=== PATIENT | female | born 1955 | race Caucasian/White ===

== ENCOUNTER 2018-05-30 15:31 | Outpatient (CLI) | payer OTHER ==
[~2018-05-30] VITALS: Ht 160 cm; Wt 94.5 kg
--- NOTE | ~2018-05-30 | HEMODYNAMI ---
PATIENT:ALEXANDRA JIMENEZ MEDICAL RECORD: [id number] : 59 LOCATION:[facility] D.[address] [facility]# [id number] ADMISSION DATE: 05/30/18 Generatedon:05/31/201811:30 Patient name: ALEXANDRA JIMENEZ Patient #: [id number] SSN: : 1955 Date of study: 05/31/2018 Page: Of Hemodynamic Procedure Report Patient Data Patient Demographics Procedure consent was obtained First Name: ALEXANDRA Gender: Female Last Name: BARBARA : 1955 [facility] Initial: Deandra Age: 62 year(s) Patient #: [id number] Race: Unknown Additional ID: [id number] Contact details [address]: [address] [place] [address] State: [place] City: [place] Zip code: [address] Past Medical History Allergies Allergen Reaction Date Comments Reported Other allergy 05/31/2018 EGG,LATEX, DAIRY, CARDIOLYTE Admission Admission Data Admission Date: 05/30/2018 Admission Time: 15:31 Admit Source: Emergency department Room #: D.2121 Lab Results Lab Result Date: 05/31/2018 Lab Result Time: 0:00 Biochemistry Name Units Result Min Max BUN mg/dl 14 --(--*-)-- 7 18 Creatinine mg/dl 0.9 --(-*--)-- 0.6 1.3 CBC Name Units Result Min Max Hemoglobin g/dl 12.2 *-(----)-- 13.5 17.5 Procedure Procedure Types Cath Procedure Diagnostic Procedure C [facility] w/Coronaries FFR/IVUS Intra-Coronary IVUS Initial Intra-Coronary IVUS Additional PCI Procedure Coronary Stent Coronary Stent Initial Procedure Description Procedure Date Procedure Date: 05/31/2018 Procedure Start Time: 11:09 Procedure End Time: 11:28 Procedure Staff Name Function Curtis Iglesias MD Performing Physician Yarelis Stark RT Monitor Phillip Calvillo RT Scrub Sophia Schumacher RN Nurse Procedure Data Cath Procedure Fluoroscopy Diagnostic fluoroscopy Total fluoroscopy Time: 5.8 time: 5.8 min min Diagnostic fluoroscopy Total fluoroscopy dose: 677 dose: 677 mGy mGy Contrast Material Contrast Material Type Amount (ml) Isovue 300 112 Entry Location Entry Primary Successful Side Size Upsize Upsize Entry Closure Cohen ccessful Closure Location (Fr) 1 (Fr) 2 (Fr) Remarks Device Remarks Femoral Right 6 Fr Mechanical artery Short Compression Estimated blood loss: 10 ml Diagnostic catheters Device Type Used For End Catheter Placement DIAGNOSTIC [place] 110cm 5 Procedure Fr catheter ([id number]) Procedure Complications No complications Procedure Medications Medication Administration Route Dosage 0.9% NaCl I.V. 100 ml/hr Oxygen etCO2 Nasal cannula 2 l/min Lidocaine 2% added to field 20 Heparin Flush Bag added to field 2 bags (1000units/500ml NS) Radial Cocktail added to field 1 syringe (Verapomil 2mg/Nitro 400mcg/Heparin 1500units) Versed I.V. 2 mg Fentanyl I.V. 50 mcg Heparin Bolus I.V. 4000 units Versed I.V. 1 mg Plavix P.O. 75 mg Hemodynamics Rest HGB: 12.2 (g/dl) Heart Rate: 60 (bpm) Snapshots Pre Cath Intra NCS Post Cath Vital Signs Time Heart Resp SPO2 etCO2 NIBP (mmHg) Rhythm Pain Sedation Rate (ipm) (%) (mmHg) Status Level (bpm) 10:50:34 61 11 98 24.3 134/66(100) NSR 0 (11) 10(A) , No pain 10:55:00 64 17 96 44 121/72(94) NSR 0 (11) 10(A) , No pain 10:59:24 62 19 97 45 108/63(92) NSR 0 (11) 10(A) , No pain 11:03:48 72 13 97 44 115/68(94) NSR 0 (11) 10(A) , No pain 11:08:15 61 17 97 48.6 128/68(111) NSR 0 (11) 10(A) , No pain 11:12:37 67 12 96 44.1 102/60(81) NSR 0 (11) 10(A) , No pain 11:16:57 68 13 97 44.8 116/67(90) NSR 0 (11) 10(A) , No pain 11:21:28 70 19 98 47.9 128/57(89) NSR 0 (11) 10(A) , No pain 11:26:02 80 16 97 40.3 111/65(87) NSR 0 (11) 10(A) , No pain Medications Time Medication Route Dose Verified Delivered Reason Not es Effectiveness by by 10:38:55 0.9% NaCl I.V. 100 Curtis Sophia used for ml/hr Kelsie Schumacher movie editor 10:39:03 Oxygen etCO2 2 l/min Curtis Sophia used for Nasal Klesie Schumacher procedure cannula RN 10:39:08 Lidocaine 2% added 20ml Curtis Sophia used for to vial Kelsie Schumacher procedure field RN 10:39:13 Heparin Flush added 2 bags Curtis Sophia used for Bag to Kelsie Schumacher procedure (1000units/500ml field RN NS) 10:53:04 Radial Cocktail added 1 Curtis Sophia used for (Verapomil to syringe Kelsie Schumacher procedure 2mg/Nitro field RN 400mcg/Heparin 1500units) 11:07:28 Versed I.V. 2 mg Curtis Sophia for sedation Kelsie Schumacher RN 11:07:37 Fentanyl I.V. 50 mcg Curtis Sophia for sedation Kelsie Schumacher RN 11:20:25 Heparin Bolus I.V. 4000 Curtis Sophia for jen ified units Kelsie Schumacher anticoagulation with Dr. NICHOLAS Iglesias 11:22:37 Versed I.V. 1 mg Curtis Sophia for sedation Kelsie Schumacher RN 11:26:57 Plavix P.O. 75 mg Curtis Sophia for Kelsie Schumacher antiplatelet RN therapy Procedure Log Time Note 10:31:13 Informed consent obtained and on chart 10:31:17 Admit Source: Emergency department 10:31:32 Diagnostic Cath status Elective 10:31:33 Phillip Calvillo RT(R) sent for patient. Start room use. 10:31:34 Time tracking: Regular hours (M-F 7:00 - 5:00) 10:31:37 Plan of Care:Hemodynamics will remain stable., Cardiac rhythm will remain stable., Comfort level will be maintained., Respiratory function will remain adequate., Patient/ family verbilizes understanding of procedure., Procedure tolerated without complication., Recovers from procedure without complications.. 10:38:55 0.9% NaCl 100 ml/hr I.V. was administered by Sophia Schumacher RN; used for procedure; 10:39:03 Oxygen 2 l/min etCO2 Nasal cannula was administered by Sophia Schumacher RN; used for procedure; 10:39:08 Lidocaine 2% 20ml vial added to field was administered by Sophia Schumacher RN; used for procedure; 10:39:13 Heparin Flush Bag (1000units/500ml NS) 2 bags added to field was administered by Sophia Schumacher RN; used for procedure; 10:41:32 Patient received from Med II to CCL 1 Alert and oriented. Tansferred to table in Supine position. 10:41:33 Warm blankets applied, and kristyn hugger turned on for patient comfort. 10:41:33 Correct patient and procedure confirmed by team. 10:41:34 ECG and BP/O2 sat monitors applied to patient. 10:49:07 Vital chart was started 10:53:04 Radial Cocktail (Verapomil 2mg/Nitro 400mcg/Heparin 1500units) 1 syringe added to field was administered by Sophia Schumacher RN; used for procedure; 10:54:04 Baseline sample Acquired. 10:54:07 Rhythm: sinus rhythm 10:54:08 Full Disclosure recording started 10:54:09 Pre-procedure instructions explained to patient. 10:54:10 Pre-op teaching completed and patient verbalized understanding. 10:54:11 Family in patients room. 10:54:12 Patient NPO since Midnight. 10:54:29 Patient allergic to Other allergyEGG,LATEX, DAIRY, CARDIOLYTE 10:54:34 Is patient on blood thinner?Yes 10:54:36 ACC The patient was administered the following blood thiners within the last 24 hours: ACCPlavix 10:54:38 Patient diabetic? No. 10:54:40 Patient not . Patient is over age 55. 10:54:42 Previous problem with sedation/anesthesia? No ? 10:54:43 Snore? No 10:54:44 Sleep apnea? No 10:54:45 Deviated septum? No 10:54:45 Opens mouth fully? Yes 10:54:46 Sticks out tongue? Yes 10:54:48 Airway obstruction? No ? 10:54:49 Dentures? No ? 10:54:52 Modified Davin's test Ulnar < 7 seconds 10:54:55 Patient pain scale 0/10 ?. 10:55:02 IV patent on arrival in left antecubital with 0.9% NaCl at [facility]. 10:55:29 Lab Result : BUN 14 mg/dl 10:55:29 Lab Result : Hemoglobin 12.2 g/dl 10:55:29 Lab Result : Creatinine 0.9 mg/dl 10:55:33 Lab results completed and on chart. 10:55:37 Right Radial & Right Groin area was prepped with chlora-prep and draped in sterile fashion 10:55:37 Alarms reviewed by R. N. 10:55:38 Sharps counted by scrub and verified by R.N. 10:59:49 Zero performed for pressure channel P1 10:59:57 Zero performed for pressure channel P1 11:02:02 Use device set Radial Dx or PCI 11:02:09 ACIST Syringe (62939) opened to sterile field. 11:02:12 Bag Decanter (2002S) opened to sterile field. 11:02:13 ACIST Hand Control (98809) opened to sterile field. 11:02:13 ACIST Manifold (38516) opened to sterile field. 11:02:14 Tegaderm 4 x 4 (1626W) opened to sterile field. 11:02:55 Medline Cath Pack ([id number]) opened to sterile field. 11:02:56 DIAGNOSTIC WIRE .035 260cm J wire (402391) opened to sterile field. 11:02:56 MBrace Wrist Support ([id number]) opened to sterile field. 11:02:58 SHEATH 6Fr Prelude Radial ([id number]) opened to sterile field. 11:06:59 --------ALL STOP TIME OUT------ 11:07:00 Final Timeout: patient, procedure, and site verified with staff and physician. All members of the team are in agreement. 11:07:02 Right Radial & Right Groin site verified by team. 11:07:07 Physical assessment completed. ASA score P 2 - A patient with mild systemic disease as per Curtis Iglesias MD. 11:07:10 Sedation plan: IV Moderate Sedation Medication:Versed, Fentanyl 11:07:28 Versed 2 mg I.V. was administered by Sophia Schumacher RN; for sedation; 11:07:37 Fentanyl 50 mcg I.V. was administered by Sophia Schumacher RN; for sedation; 11:09:00 Procedure started. 11:09:10 Local anesthetic to right radial artery with Lidocaine 2% by Curtis Iglesias MD.INITIAL ACCESS ONLY 11:10:00 A 6 Fr Short sheath was inserted into the Right Femoral artery 11:10:33 A DIAGNOSTIC [place] 110cm 5 Fr catheter (100962) was advanced over the wire and used for Procedure. 11:11:42 LV gram done using ALEJO 11:11:45 Injector settings: Ml/sec: 7, Volume: 15, 11:12:04 EF : 55 % 11:12:23 RCA angiography performed. 11:12:46 Catheter exchanged over wire. 11:13:15 GUIDE 6FR XBLAD 3.5 catheter ([id number]) opened to sterile field. 11:13:27 6 Fr XBLAD 3.5 guide catheter was inserted over the wire 11:16:45 LCA angiography performed. 11:17:22 CHOICE PT Extra Support 182cm wire ([id number]) opened to sterile field. 11:17:23 INFLATOR Merit BasixCompak (ZD5376) opened to sterile field. 11:17:27 [place]lin Eagley[place] IVUS Catheter (53883R) opened to sterile field. 11:18:16 CHOICE ES 182 wire advanced. 11:18:17 Wire advanced across lesion. 11:20:25 Heparin Bolus 4000 units I.V. was administered by Sophia Schumacher RN; for anticoagulation; verified with Dr. Iglesias 11:20:37 IVUS catheter advanced over wire. 11:20:39 IVUS pass to Circ lesion performed. 11:20:41 IVUS catheter removed over wire. 11:22:19 Inflate balloon Inflation number: 1 A INTEGRITY RX 3.5 x 15 stent ([id number]) was prepped and advanced across the Mid CX, then inflated to 11 ILEANA for 0:10 (min:sec). 11:22:36 Stent catheter was removed intact over wire. 11:22:37 Versed 1 mg I.V. was administered by Sophia Schumacher RN; for sedation; 11:22:38 Wire removed. 11:22:43 Wire redirected to LAD. 11:23:43 IVUS catheter advanced over wire. 11:23:49 IVUS pass to LAD lesion performed. 11::35 IVUS catheter removed over wire. 11::42 Wire removed. 11::43 Guide catheter removed. 11:25:39 Procedure ended.(Physican Out) 11:25:42 TR BAND Standard ([id number]) opened to sterile field. 11:25:50 Sheath removed intact; hemostasis achieved with Mechanical Compression to the Right Femoral artery. 11:26:03 Fluoroscopy time 05.80 minutes. 11:26:08 Fluoroscopy dose: 677 mGy 11::08 Flurop Dose total: 677 11:26:13 Contrast amount:Isovue 300 112ml. 11:26:14 Sharps counted by scrub and verified by R.N. 11:26:16 TR band inflated with 10cc of air. 11:26:20 Post-procedure physical assessment completed. ASA score P 2 - A patient with mild systemic disease as per Curtis Iglesias MD. 11:26:23 Post procedure rhythm: sinus rhythm 11::25 Estimated blood loss: 10 ml 11:26:27 Post procedure instruction explained to patient.Patient verbalizes understanding. 11:26:27 Patient needs reinforcement of post procedure teaching. 11:26:55 Procedure type changed to Cath procedure, Diagnostic procedure, LHC, LHC w/Coronaries, FFR/IVUS, Intra-Coronary IVUS Initial, Intra-Coronary IVUS Additional, PCI procedure, Coronary Stent, Coronary Stent Initial 11:26:57 Plavix 75 mg P.O. was administered by Sophia Schumacher RN; for antiplatelet therapy; 11:28:20 Procedure and supply charges have been captured, reviewed, submitted and are correct. 11:28:24 Procedure Complication : No complications 11:28:26 Vital chart was stopped 11::27 See physician's report for complete and final results. 11::28 Report given to Pre/Post Procedure Room. 11:28:31 Patient transfered to Pre/Post Procedure Room with Bed. 11:28:32 Procedure ended. 11:28:32 Full Disclosure recording stopped 11::35 End room use (Document Last) Intervention Summary Intervention Notes Time ActionType Lesion and Equipment Action# Pressure Duration Attributes Used 11:22:19 Inflate Mid CX INTEGRITY RX 1 11 00:10 balloon 3.5 x 15 stent ([id number]) Device Usage Item Name Manufacture Quantity Catalog Number Hospital Part Current M inimal Lot# / Charge Number Stock Stock Serial# Code ACIST Syringe Acist 1 37546 843171 007175 590507 2 0 (97845) Medical Systems SnoopWall Bag Decanter Microtek 1 2001S 752942 39474 964907 5 (2001S) Medical Inc. ACIST Hand Acist 1 01625 271806 640541 975945 5 Control (79856) Medical Systems Inc ACIST Manifold Acist 1 28774 674881 571940 825550 5 (32423) Medical Systems Inc Tegaderm 4 x 4 3M 1 1626W 124281 573604 728194 5 (1626W) Medline Cath Medline 1 [id number] 855816 47852 535775 5 Pack ([id number]) DIAGNOSTIC WIRE St Vic 1 532469 125327 704819 148483 3 0 .035 260cm J wire (206997) MBrace Wrist Advanced 1 140-0250-00 435916 26383 887467 5 Support Vascular ([id number]) Dynamics SHEATH 6Fr Merit 1 [id number] 837973 139339 536219 5 Prelude Radial Medical ([id number]) DIAGNOSTIC Terumo 1 06-0981 728061 201423 440152 5 [place] 110cm 5 Fr catheter (626011) GUIDE 6FR XBLAD Cardinal 1 14662823 382760 594237 121318 1 0 3.5 catheter Health (18159393) CHOICE PT Extra Armstrong 1 [id number] 109652 266988 318536 5 Support 182cm Scientific wire ([id number]) INFLATOR Merit Merit 1 JL4110 448420 730409 728370 1 5 Admaxim (WL9778) [place] 1 [id number] 993510 432944 622881 8 [place] IVUS Catheter (18103T) INTEGRITY RX Medtronic 1 [id number] 789870 198304 478035 5 [id number] 3.5 x 15 stent ([id number]) TR BAND Terumo 1 [id number] 067452 579800 911704 4 0 Standard ([id number]) Signature Audit [place] Stage Time Signature Unsigned Intra-Procedure 05/31/2018 Yarelis Stark 11:30:09 AM RT(R) Signatures Monitor : Yarelis Stark Signature : RT Date : Time : [address] [address]
--- NOTE | ~2018-05-30 | OP ---
PATIENT NAME: ALEXANDRA JIMENEZ MEDICAL RECORD: [id number] :59 [facility] ADMISSION DATE:05/30/18 SURGEON: ELEAZAR GRANADOS MD DATE OF OPERATION: 05/31/2018 PROCEDURES: 1. PTCA and stent of left circumflex. 2. Intravascular ultrasound of left circumflex. 3. Intravascular ultrasound of LAD. 4. Left heart catheterization. 5. Selective coronary angiography. 6. Left ventriculogram. INDICATION: Angina and coronary artery disease. PROCEDURE IN DETAIL: After informed consent was obtained and after a detailed explanation of the risks, benefits as well as alternative therapies, the patient elected to proceed with angiogram and angioplasty. The right radial area was prepped and draped in normal sterile fashion. Right radial artery was cannulated via modified Seldinger technique with placement of 6-Macanese sheath. All catheters exchanged through this sheath. FINDINGS: Left ventriculogram was performed in standard 30-degree ALEJO view, reveals good cardiac wall motion throughout all segments. Overall ejection fraction estimated 60%. SELECTIVE CORONARY ANGIOGRAPHY: 1. Left main is with no significant angiographic disease. 2. Left anterior descending has no significant disease confirmed by intravascular ultrasound. 3. Left circumflex has greater than 70% stenosis in the mid vessel confirmed by intravascular ultrasound. 4. Right coronary has mild irregularities, but no flow-limiting stenosis. PTCA AND STENT OF THE LEFT CIRCUMFLEX: The stent used 3.5 x 15-mm Integrity. Result was 0% residual stenosis. OVERALL IMPRESSION: Successful PTCA and stent of the left circumflex going from greater than 70% initial stenosis to 0% residual. TRANSINT:[id number] Voice Confirmation ID: [id number] DOCUMENT ID: [id number] ELEAZAR GRANADOS MD at 1256 CC: [id number] DICTATION DATE: 05/31/18 1131 PATIENT REGISTRAR: 05/31/18 1139 ADM IN [place] [id number] [place] [id number]
[~2018-05-30 15:31] MED LIST: BUTALB-APAP-CA1 EACH; CARAFATE1 G/10 ML PO; CARDIZEM120 MG PO; CELEBREX200 MG; CELEBREX200 MG PO; CELEXA40 MG PO; COMPAZINE10 MG PO; COZAAR100 MG PO; EC-NAPROSYN500 MG PO; ESTRACE 0.5 MG0.5 MG PO; HYDROCHLOROTHIA25 MG PO; HYDROCODON-ACE1 EAC7 PO; K-TAB10 MEQ PO; MAXALT10 MG PO; PHENERGAN25 M1 PO; PROTONIX40 MG PO; SYNTHROID88 MCG PO; TOPAMAX200 MG PO; TOPAMAX25 MG PO; ULTRAM50 MG PO; VENTOLIN HFA18 GM INH; XANAX1 MG PO
[2018-05-30 15:53] VITALS: BP 145/89
[2018-05-30 15:54] VITALS: BP 145/89; BMI 51.8
[2018-05-30] MEDS ORDERED: NEURONTIN 300300 MG PO (16:04)
[2018-05-30] MEDS ORDERED: HCTZ25 MG PO (16:05)
[2018-05-30 16:15] LABS: BASOPHILS 0.4 % (0-2); EOSINOPHILS 4.4 % (0-7); HEMATOCRIT 36.8 % (36.0-48.0); HEMOGLOBIN 12.2 g/dL (12-16); IMMATURE GRANULOCYTES 0.3 % (0-5); LYMPHOCYTES 18.4 % (15-50); MCHC 33.2 g/dL (31.0-37.0); MCV 87.4 fL (80.0-100.0); MEAN PLATELET VOLUME 9.5 fL (7.4-10.4); MONOCYTES 6.1 % (2-11); NEUTROPHILS 70.4 % (40-80); PLATELET COUNT 266 10x3/uL (130-400); RBC 4.21 10x6/uL (4.00-5.40); RDW 14.3 % (11.5-14.5); WBC 7.1 10x3/uL (4.8-10.8)
[2018-05-30 16:38] LABS: CALC OSMOLALITY 281 mosm/kg (275-300); CALCIUM 9.1 mg/dL (8.5-10.1); CARBON DIOXIDE 25.6 mmol/L (21.0-32.0); CHLORIDE - SERUM 106 mmol/L (98-107); CREATININE - SERUM 0.9 mg/dL (0.6-1.3); GLUCOSE 97 mg/dL (74-106); POTASSIUM - SERUM 3.3 mmol/L (3.5-5.1); SODIUM 141 mmol/L (136-145); UREA NITROGEN 14 mg/dL (7-18); eGFR NON AFRICAN AMERICAN 68 mL/min (90-120)
[2018-05-30 16:39] LABS: TROPONIN-I < 0.017 ng/mL (0.000-0.060)
[2018-05-30 21:46] VITALS: BP 127/64
[2018-05-31 02:34] VITALS: BP 133/48
[2018-05-31 06:34] VITALS: BP 115/55
[2018-05-31 08:54] VITALS: BP 99/60
[2018-05-31] MEDS ORDERED: BAYER CHEWABLE81 MG PO (11:43)
[2018-05-31] MEDS ORDERED: PLAVIX75 MG PO (11:43)
[2018-05-31 21:41] VITALS: Ht 160 cm; Wt 94.5 kg
== END 2018-05-31 16:00 | disposition home or self-care (01) ==
LOC: OBSVTIME → UNDOADMOB 15:31 → D.M2 15:31 → D.OPS 15:31 → D.M2 15:31 → EDSTATUS 05-31 11:30 → D.M2 05-31 11:37 → D.CLR 05-31 11:37 → D.OPS 05-31 16:00 → D.CLR 05-31 16:00
PROVIDERS: Internal Medicine Interventional Cardiology
DX: I25.119 Atherosclerotic heart disease of native coronary artery with unspecified angina pectoris (principal); Z95.5 Presence of coronary angioplasty implant and graft; I10 Essential (primary) hypertension

== ENCOUNTER 2018-05-31 21:33 | Emergency (ER) | payer OTHER ==
[~2018-05-31] VITALS: Ht 160 cm; Wt 99.1 kg
--- NOTE | ~2018-05-31 | DS ---
PATIENT:ALEXANDRA BARNETT :59 MEDICAL RECORD: [id number] DISCHARGE SUMMARY ADMISSION DATE: 05/31/18 DISCHARGE DATE: 06/01/18 DATE OF SERVICE: 05/31/2018. DIAGNOSES: 1. Angina. 2. Coronary artery disease. 3. Percutaneous transluminal coronary angioplasty stent of left circumflex this admission. HOSPITAL COURSE: Mrs. Barnett presents with anginal symptomatology, found to have significant disease of the circumflex, underwent successful PTCA stent of the circumflex, discharged home with the addition of aspirin and Plavix to her medical regimen. Will follow up with [facility] in 1 month. TRANSINT:[id number] Voice Confirmation ID: [id number] DOCUMENT ID: [id number] ELEAZAR GRANADOS MD at 1138 CC: [id number] DICTATION DATE: 05/31/18 1129 DUST COLLECTOR: 05/31/18 2228 DEP ER 06/01/[address] [address]
--- NOTE | ~2018-05-31 | HP ---
PATIENT: ALEXANDRA BARNETT MEDICAL RECORD: [id number] ACCOUNT: [id number] LOCATION:[facility] : 59 ADMISSION DATE: 05/31/18 PCP: JASMINA SEN MD HISTORY AND PHYSICAL EXAMINATION DIAGNOSIS: Chest pain compatible with angina. HISTORY OF PRESENT ILLNESS: Mrs. Barnett has had increasing episodes of chest pain, chest discomfort compatible with angina worsened over the past week. PHYSICAL EXAMINATION: GENERAL APPEARANCE: Well-nourished, well-developed, appears stated age. Level of distress, comfortable. PSYCHIATRIC: Mental status, alert, normal affect. Orientation, oriented to time, place and person. EYES: Lids and conjunctiva, noninjected. No discharge, no pallor. ENT: Lips, teeth, gums, normal dentition. Oropharynx, no cyanosis, no pallor. NECK: Carotid arteries, bilateral normal upstroke, no bruits, no thrills. JUGULAR VEINS: No jugular venous pressure or distention. CERVICAL LYMPH NODES: Nontender, nonenlarged. THYROID: Not enlarged. Nontender. No nodules. LUNGS: Respiratory effort, unlabored. CHEST: Normal curvature. No thoracic deformity. No chest wall tenderness. Percussion, resonant. Auscultation, clear. No wheezes, no rales, no rhonchi. CARDIOVASCULAR: Precordial exam, nondisplaced. No heaves or pericardial thrills. Rate and rhythm, regular. Heart sounds, normal S1, normal S2. No S3, no gallop, no rub. Systolic murmur, not heard. Diastolic murmur, not heard. EXTREMITIES: No cyanosis, no edema. Peripheral pulses, full and equal in all extremities, except as noted. No bruits appreciated. ABDOMEN: Soft, nondistended. Normal aorta. No bruit. Nontender. No masses. Liver, nontender, no hepatomegaly. Spleen, nontender, no splenomegaly. MUSCULOSKELETAL: No joint tenderness. No joint swelling. No erythema. NEUROLOGICAL: Normal gait, normal strength, normal tone. SKIN: Warm and dry. REVIEW OF SYSTEMS: The patient reports easy bruising but reports no swollen glands. The patient reports no fever, no night sweats, no significant weight gain, no significant weight loss. No significant exercise tolerance. The patient reports no dry eyes, no irritation, no vision change. Patient reports no difficulty hearing and no ear pain. Patient reports no frequent nose bleeds or nose and sinus problems. Patient reports on arm pain on exertion. No shortness of breath while lying down. No history of heart murmur. Patient reports no cough, no wheezing or coughing up blood. Patient reports no abdominal pain, no vomiting. Normal appetite. No diarrhea and not vomiting blood. No nausea and no constipation. Patient reports no incontinence. No difficulty urinating. No hematuria. No increased frequency. Patient reports no muscle aches. No weakness, no arthralgias, no back pain. No swelling of the extremities. Patient reports no abnormal mole, no jaundice, no rashes. Reports no loss of consciousness. No weakness and no numbness. No seizures, dizziness, or headaches. The patient reports no depression, no sleep disturbance, feeling safe in a relationship and no alcohol abuse. Patient reports on fatigue. Reports no runny nose or sinus pressure. No itching, no hives, and no frequent sneezing. OVERALL IMPRESSION: Anginal symptomatology. We will proceed with coronary HISTORY AND PHYSICAL [id number] ALEXANDRA BARNETT angiography. Further care depends upon the findings of the angiography. TRANSINT:[id number] Voice Confirmation ID: [id number] DOCUMENT ID: [id number] ELEAZAR GRANADOS MD CC: [id number] DICTATION DATE: 06/21/18922 PLUSH DRESSER: 06/21/18 1218 DEP ER 06/01/18 [place] [id number] [place] [address]
[~2018-05-31 21:33] MED LIST changes: +BAYER CHEWABLE81 MG PO; +HCTZ25 MG PO; +NEURONTIN 300300 MG PO; +PLAVIX75 MG PO
[2018-05-31 21:41] VITALS: Ht 160 cm; Wt 99.1 kg
[2018-05-31 23:30] LABS: HEMATOCRIT 34.6 % (36.0-48.0); HEMOGLOBIN 11.9 g/dL (12-16); LYMPHOCYTES 19.6 % (15-50); MCH 29.7 pg (26.0-34.0); MCHC 34.4 g/dL (31.0-37.0); MCV 86.3 fL (80.0-100.0); MEAN PLATELET VOLUME 8.9 fL (7.4-10.4); NEUTROPHILS 69.6 % (40-80); PLATELET COUNT 252 10x3/uL (130-400); RBC 4.01 10x6/uL (4.00-5.40); RDW 13.6 % (11.5-14.5); WBC 5.5 10x3/uL (4.8-10.8)
[2018-05-31 23:52] LABS: ALBUMIN 3.3 g/dL (3.4-5.0); ANION GAP 12.4 mmol/L (8-16); BILIRUBIN - TOTAL 0.23 mg/dL (0.2-1.3); CALCIUM 8.4 mg/dL (8.5-10.1); POTASSIUM - SERUM 3.4 mmol/L (3.5-5.1); PROTEIN - SERUM 6.9 g/dL (6.4-8.2); TROPONIN-I 0.033 ng/mL (0.000-0.060)
[2018-06-01 01:44] VITALS: BP 110/64
== END 2018-06-01 01:44 | disposition home or self-care (01) ==
LOC: D.ER 21:33
PROVIDERS: Family Medicine
DX: R07.9 Chest pain, unspecified (principal); I25.10 Atherosclerotic heart disease of native coronary artery without angina pectoris; G43.409 Hemiplegic migraine, not intractable, without status migrainosus; R06.02 Shortness of breath; I10 Essential (primary) hypertension

== ENCOUNTER → 2018-08-25 08:12 | Outpatient (CLI) | payer OTHER ==
[2018-05-31 21:41] VITALS: BMI 38.7
== END | disposition home or self-care (01) ==
LOC: D.RAD 08:12
DX: R13.10 Dysphagia, unspecified (principal)

== ENCOUNTER → 2018-09-19 13:14 | Outpatient (CLI) | payer OTHER ==
[2018-05-31 21:41] VITALS: BMI 38.7
== END | disposition home or self-care (01) ==
LOC: D.RAD 13:00
PROVIDERS: ATTEND Family Medicine
DX: R13.10 Dysphagia, unspecified (principal)

== ENCOUNTER 2019-02-21 07:50 | Outpatient (CLI) | payer OTHER ==
[~2019-02-21] VITALS: Ht 160 cm; Wt 90.5 kg
--- NOTE | ~2019-02-21 | OP ---
PATIENT NAME: ALEXANDRA JIMENEZ MEDICAL RECORD: [id number] :59 LOCATION:D.CAT ADMISSION DATE: SURGEON: ELEAZAR GRANADOS MD DATE OF OPERATION: 02/21/2019 PROCEDURES: 1. Left heart catheterization. 2. Selective coronary angiography. 3. Left ventriculogram. INDICATION: Angina and coronary artery disease. PROCEDURE IN DETAIL: After informed consent was obtained and after a detailed description of risks, benefits as well as alternative therapies, the patient elected to proceed with angiogram and heart catheterization. The right femoral area was prepped and draped in normal sterile fashion. Right femoral artery was cannulated via modified Seldinger technique with placement of 5-Mongolian sheath. All catheters exchanged through this sheath. FINDINGS: Left ventriculogram was performed in standard 30-degree ALEJO view, reveals good cardiac wall motion, ejection fraction estimated 60%. SELECTIVE CORONARY ANGIOGRAPHY: 1. Left main is with no significant angiographic disease. 2. Left anterior descending has previously placed stent that is widely patent. There is no disease elsewise throughout the LAD or its branches. 3. Left circumflex has moderate irregularities, but no flow-limiting stenosis. 4. Right coronary has moderate irregularities, but no flow-limiting stenosis. OVERALL IMPRESSION: Wide patency of the previously placed stent, no disease elsewise. Chest pain is noncardiac in etiology. TRANSINT:[id number] Voice Confirmation ID: [id number] DOCUMENT ID: [id number] ELEAZAR GRANADOS MD CC: [id number] DICTATION DATE: 02/21/19 1043 BOTTOM STEEP TENDER: 02/21/19 1055 REG [facility] [address] [place] [address]
--- NOTE | ~2019-02-21 | HEMODYNAMI ---
PATIENT:ALEXANDRA JIMENEZ MEDICAL RECORD: [id number] : 59 LOCATION:DMICHELLE ADMISSION DATE: 02/21/19 Generatedon:02/21/201910:42 Patient name: ALEXANDRA JIMENEZ Patient #: [id number] SSN: [id number] : 1955 Date of study: 02/21/2019 Page: Of Hemodynamic Procedure Report Patient Data Patient Demographics Procedure consent was obtained First Name: ALEXANDRA Gender: Female Last Name: BARBARA : 1955 [facility] Initial: J Age: 63 year(s) Patient #: [id number] Race: SSN: [id number] Additional ID: [id number] Contact details Address: [address] [place] [address] State: [place] City: [place] Zip code: [address] Past Medical History Allergies Allergen Reaction Date Comments Reported Other allergy 05/31/2018 EGG,LATEX, DAIRY, CARDIOLYTE Other allergy 02/21/2019 LATEX, CARDIOLYTE Admission Admission Data Admission Date: 02/21/2019 Admission Time: 7:50 Arrival Date: 02/21/2019 Arrival Time: 0:00 Admit Source: Other Insurance Payor: Medicaid, Private health insurance [facility] #: [id number] Height (in.): 62.99 BSA: 1.93 (m2) Height (cm.): 160 BMI: 35.16 (kg/m2) Weight (lbs.): 198.42 Weight (kg.): 90 Lab Results Lab Result Date: 02/21/2019 Lab Result Time: 8:30 Biochemistry Name Units Result Min Max BUN mg/dl 12 --(-*--)-- 7 18 Creatinine mg/dl 1.1 --(--*-)-- 0.6 1.3 CBC Name Units Result Min Max Hematocrit % 36.8 *-(----)-- 42 54 Hemoglobin g/dl 12.4 *-(----)-- 13.5 17.5 Procedure Procedure Types Cath Procedure Diagnostic Procedure [facility] w/Coronaries Procedure Description Procedure Date Procedure Date: 02/21/2019 Procedure Start Time: 10:31 Procedure End Time: 10:41 Procedure Staff Name Function Curtis Iglesias MD Performing Physician Phillip Calvillo RT Scrub Rayo Merrill RN Nurse Mitchel Herrera RT Monitor Procedure Data Cath Procedure Fluoroscopy Diagnostic fluoroscopy Total fluoroscopy Time: 1 time: 1 min min Diagnostic fluoroscopy Total fluoroscopy dose: 346 dose: 346 mGy mGy Contrast Material Contrast Material Type Amount (ml) Isovue 300 46 Entry Location Entry Primary Successful Side Size Upsize Upsize Entry Closure Succes sful Closure Location (Fr) 1 (Fr) 2 (Fr) Remarks Device Remarks Femoral Right 5 Fr Exoseal artery Estimated blood loss: 10 ml Diagnostic catheters Device Type Used For End Catheter Placement MULTIPACK Pigtail 5 Fr Ventriculography catheter MULTIPACK JL 4.0 5Fr Procedure catheter MULTIPACK 3DRC 5Fr Procedure catheter Procedure Medications Medication Administration Route Dosage 0.9% NaCl I.V. 100 ml/hr Oxygen etCO2 Nasal cannula 2 l/min Heparin Flush Bag added to field 2 bags (1000units/500ml NS) Lidocaine 2% added to field 20 Versed I.V. 1 mg Fentanyl I.V. 50 mcg Versed I.V. 1 mg Fentanyl I.V. 50 mcg Hemodynamics Rest BSA: 1.93 (m2) HGB: 12.4 (g/dl) O2 Consumption: Estimated: 164.46 (ml/min) O2 Co nsumption indexed: Estimated:85.21 (ml/min/m) Heart Rate: 45 (bpm) Pressure Samples Time Site Value (mmHg) Purpose Heart Use Rate(bpm) 10:33 AO 124/70(56) Snapshot 53 Snapshots Pre Cath Intra NCS Post Cath Vital Signs Time Heart Resp SPO2 etCO2 NIBP Rhythm Pain Sedation Rate (ipm) (%) (mmHg) (mmHg) Status Level (bpm) 10:25:26 54 13 92 44.1 97/57(74) NSR 6 (11) 10(A) , Intense 10:29:36 55 15 92 46.3 98/61(75) NSR 6 (11) 10(A) , Intense 10:33:50 56 13 93 11.9 102/52(69) NSR 6 (11) 10(A) , Intense 10:38:01 61 22 95 11.2 96/60(86) NSR 0 (11) 9(A) , No pain Medications Time Medication Route Dose Verified Delivered Reason Notes Eff ectiveness by by 10:24:28 0.9% NaCl I.V. 100 Rayo Rayo Per ml/hr Desirae Merrill physician RN RN 10:24:47 Oxygen etCO2 2 Rayo Rayo for low 02 Nasal l/min Lorigan Lorigan sats cannula RN RN 10:25:10 Heparin Flush added 2 Rayo Rayo used for Bag to bags Lorigan Lorigan procedure (1000units/500ml field RN RN NS) 10:25:19 Lidocaine 2% added 20ml Rayo Rayo for local to vial Lorigan Lorigan anesthetic field RN RN 10:28:36 Versed I.V. 1 mg Rayo Rayo for Lorigan Lorigan sedation RN RN 10:28:45 Fentanyl I.V. 50 Rayo Rayo for mcg Lorigan Lorigan sedation RN RN 10:32:25 Versed I.V. 1 mg Rayo Rayo for Lorigan Lorigan sedation RN RN 10:32:31 Fentanyl I.V. 50 Rayo Rayo for mcg Lorigan Lorigan sedation RN prosthetics lab technician Log Time Note 10:00:57 Rayo Merrill RN sent for patient. Start room use. 10:11:11 ACC Patient presents with Unstable Angina CCS Anginal Class 4--Inability to carry out any physical activity w/o angina. Angina may occur at rest. 10:11:15 ACCPatient has been prescribed/administered the following anti-anginal medication within the last 2 weeks: Beta Mireya, Long-Acting Nitrates, ARB 10:11:29 Informed consent obtained and on chart 10:13:04 Patient Height : 62.99 inches 10:13:06 Patient Weight : 198.42 lbs 10:13:12 Insurance Payor : Private health insurance, Medicaid 10:13:31 Arrival Date: 02/21/2019 12:00:00 AM 10:13:32 Admit Source: Other 10:14:00 Lab Result : BUN 12 mg/dl 10:14:00 Lab Result : Hemoglobin 12.4 g/dl 10:14:00 Lab Result : Creatinine 1.1 mg/dl 10:14:00 Lab Result : Hematocrit 36.8 % 10:14:22 H&P Date Dictated: 02/16/2019 Within 30 days and on chart., H&P Addendum completed by physician on day of procedure. (MUST COMPLETE FOR ALL OUTPATIENTS). 10:14:25 Lab results completed and on chart. 10:14:55 Procedure Status Elective Heart Cath (OP). 10:15:03 Time tracking: Regular hours (M-F 7:00 - 5:00) 10:15:06 Plan of Care:Hemodynamics will remain stable., Cardiac rhythm will remain stable., Comfort level will be maintained., Respiratory function will remain adequate., Patient/ family verbilizes understanding of procedure., Procedure tolerated without complication., Recovers from procedure without complications.. 10:15:10 Patient received from Pre/Post Procedure Room to CCL 1 Alert and oriented. Tansferred to table in Supine position. 10:15:25 Warm blankets applied, and kristyn hugger turned on for patient comfort. 10:15:25 Correct patient and procedure confirmed by team. 10:15:25 ECG and BP/O2 sat monitors applied to patient. 10:15:26 Pre-procedure instructions explained to patient. 10:15:27 Pre-op teaching completed and patient verbalized understanding. 10:15:28 Family in waiting room. 10:15:30 Patient NPO since Midnight. 10:15:45 Patient allergic to Other allergyLATEX, CARDIOLYTE 10:24:12 Vital chart was started 10:24:13 Baseline sample Acquired. 10:24:19 Rhythm: sinus bradycardia 10:24:21 Full Disclosure recording started 10:24:27 Is the patient allergic to Iodine/contrast media? No. 10:24:28 0.9% NaCl 100 ml/hr I.V. was administered by Rayo Merrill RN; Per physician; 10:24:37 Is patient on blood thinner?No 10:24:46 Patient diabetic? No. 10:24:47 Oxygen 2 l/min etCO2 Nasal cannula was administered by Rayo Merrill RN; for low 02 sats; 10:24:48 ----Pre-sedation anethsthesia assessment.---- 10:24:53 Previous problem with sedation/anesthesia? No ? 10:24:54 Snore? Yes 10:24:56 Sleep apnea? No 10:24:58 Deviated septum? No 10:24:59 Opens mouth fully? Yes 10:25:00 Sticks out tongue? Yes 10:25:03 Airway obstruction? No ? 10:25:07 Dentures? No ? 10:25:10 Heparin Flush Bag (1000units/500ml NS) 2 bags added to field was administered by Rayo Merrill RN; used for procedure; 10:25:12 Pre procedure: right dorsailis pedis pulse 1+ Palpable, but thready & weak; easily obliterated 10:25:16 Patient pain scale 6/10 ?. 10:25:19 Lidocaine 2% 20ml vial added to field was administered by Rayo Merrill RN; for local anesthetic; 10:25:42 IV patent on arrival in left antecubital with 0.9% NaCl at [facility]. 10:25:51 Right groin area was prepped with chlora-prep and draped in sterile fashion 10:25:53 Alarms reviewed by R. N. 10:25:53 Sharps counted by scrub and verified by R.N. 10:26:51 3a) 45-59 Moderately reduced kidney function. 10:26:56 Zero performed for pressure channel P1 10:27:37 Maximum allowable contrast dose (3.7 X eGFR X 0.75)147 ml. 10:27:47 Physician arrived 10:27:47 --------ALL STOP TIME OUT------ 10:27:48 Final Timeout: patient, procedure, and site verified with staff and physician. All members of the team are in agreement. 10:27:50 Right groin site verified by team. 10:27:55 Fire Safety Assessment: A--An alcohol-based skin anteseptic being used preoperatively., C--Open oxygen or nitrous oxide is being used., D--An ESU, laser, or fiber-optic light is being used. 10:27:59 Physical assessment completed. ASA score P 2 - A patient with mild systemic disease as per Curtis Iglesias MD. 10:28:03 Sedation plan: IV Moderate Sedation Medication:Versed, Fentanyl 10:28:36 Versed 1 mg I.V. was administered by Rayo Merrill RN; for sedation; 10::45 Fentanyl 50 mcg I.V. was administered by Rayo Merrill RN; for sedation; 10:30:00 Use device set Femoral Dx 10:30:01 ACIST Syringe (27430) opened to sterile field. 10:30:02 Bag Decanter (2002S) opened to sterile field. 10:30:02 Medline Cath Pack ([id number]) opened to sterile field. 10:30:04 ACIST Hand Control (22537) opened to sterile field. 10:30:04 ACIST Manifold (23448) opened to sterile field. 10:30:05 DIAGNOSTIC Multipack 5Fr catheter set ([id number]) opened to sterile field. 10:30:07 Tegaderm 4 x 4 (1626W) opened to sterile field. 10:30:08 SHEATH 5FR [place] (OLQ566) opened to sterile field. 10:30:09 EMERALD Guide Wire (730-292) opened to sterile field. 10:31:38 Procedure started. 10:31:42 Local anesthetic to right femoral artery with Lidocaine 2% by Curtis Iglesias MD.INITIAL ACCESS ONLY 10:32:00 A 5 Fr sheath was inserted into the Right Femoral artery 10:32:13 A MULTIPACK Pigtail 5 Fr catheter was advanced over the wire and used for Ventriculography. 10:32:25 Versed 1 mg I.V. was administered by Rayo Merrill RN; for sedation; 10:32:31 Fentanyl 50 mcg I.V. was administered by Rayo Merrill RN; for sedation; 10:33:15 LV hemodynamics recorded. 10:33:17 LV gram done using ALEJO 10:33:28 EF : 60 % 10:33:43 Catheter removed. 10:33:50 A MULTIPACK JL 4.0 5Fr catheter was advanced over the wire and used for Procedure. 10:34:03 LCA angiography performed. 10:34:38 Catheter removed. 10:34:59 A MULTIPACK 3DRC 5Fr catheter was advanced over the wire and used for Procedure. 10:35:25 ACCDominant side:Left 10:36:09 Catheter removed. 10:36:16 EXOSEAL 5Fr (EX500) opened to sterile field. 10:36:28 Sheath removed intact; hemostasis achieved with Exoseal to the Right Femoral artery. 10:36:39 Procedure ended.(Physican Out) 10:37:26 Fluoroscopy time 01.00 minutes. 10:37:34 Fluoroscopy dose: 346 mGy 10:37:34 Flurop Dose total: 346 10:38:10 Dose Area Product 23803 mGy/cm. 10:38:15 Contrast amount:Isovue 300 46ml. 10:38:18 Maximum allowable dose exceeded? No. 10:38:19 Sharps counted by scrub and verified by R.N. 10:38:36 Post Procedure Pulses reassessed and unchanged 10:38:39 Post-procedure physical assessment completed. ASA score P 2 - A patient with mild systemic disease as per Curtis Iglesias MD. 10:38:44 Post procedure rhythm: sinus rhythm 10:38:48 Estimated blood loss: 10 ml 10:38:52 Patient needs reinforcement of post procedure teaching. 10:38:53 Procedure and supply charges have been captured, reviewed, submitted and are correct. 10:41:12 Insertion/operative site no bleeding no hematoma. 10:41:15 Post-op/insertion site Right Femoral artery dressed using a 4 x 4 and Tegaderm. 10:41:19 Post right femoral artery:stable 10:41:21 Vital chart was stopped 10:41:22 See physician's report for complete and final results. 10:41:26 Report given to Pre/Post Procedure Room. 10:41:30 Patient transfered to Pre/Post Procedure Room with Stretcher. 10:41:33 Procedure ended. 10:41:33 Full Disclosure recording stopped 10:41:57 End room use (Document Last) Device Usage Item Name Manufacture Quantity Catalog Hospital Part Current Minimal L ot# / Number Charge Number Stock Stock Serial# Code ACIST Acist 1 40443 126091 187332 433857 20 Syringe Medical (59003) Systems Inc Bag Microtek 1 748328 91605 236643 5 Decanter Medical Inc. () Medline Medline 1 [id number] 646702 62552 205801 5 Cath Pack ([id number]) ACIST Hand Acist 1 75005 831418 505984 314050 5 Control Medical (61980) Systems Inc ACIST Acist 1 18234 719828 508182 181172 5 Manifold Medical (06193) Systems Inc DIAGNOSTIC Cardinal 1 [id number] 667477 08492 106442 30 [employer] Health 5Fr catheter set (PS8762) Tegaderm 4 3M 1 1626W 710188 739170 659208 5 x 4 (1626W) SHEATH 5FR Terumo 1 GRG720 082102 545040 694039 5 [place] (WOZ654) EMERALD Cardinal 1 150-908 963693 539188 711335 5 Guide Wire Health (817-177) MULTIPACK Cardinal 1 593429 5 Pigtail 5 Health Fr catheter MULTIPACK Cardinal 1 861697 5 JL 4.0 5Fr Health catheter MULTIPACK Cardinal 1 326056 5 3DRC 5Fr Health catheter EXOSEAL 5Fr Cardinal 1 EX500 079661 950735 134758 10 (EX500) Health Signature Audit Cunningham Stage Time Signature Unsigned Intra-Procedure 02/21/2019 Mitchel Herrera 10:42:33 AM RT(R) (CV) Signatures Performing Physician : Signature : Curtis Iglesias MD Date : Time : Nurse : Rayo Merrill Signature : RN Date : Time : Monitor : Mitchel Herrera RT Signature : Date : Time : [place] [id number] [facility] [address]
[2019-02-21] MEDS ORDERED: K-TAB10 MEQ PO (08:21)
[2019-02-21 08:31] VITALS: BP 110/66; Ht 160 cm; Wt 90.5 kg
[2019-02-21 08:43] LABS: ANION GAP 11.6 mmol/L (8-16); CALCIUM 8.8 mg/dL (8.5-10.1); CARBON DIOXIDE 26.6 mmol/L (21.0-32.0); CREATININE - SERUM 1.1 mg/dL (0.6-1.3); POTASSIUM - SERUM 3.2 mmol/L (3.5-5.1)
[2019-02-21 08:49] LABS: BASOPHILS 0.3 % (0-2); EOSINOPHILS 5.1 % (0-7); HEMATOCRIT 36.8 % (36.0-48.0); HEMOGLOBIN 12.4 g/dL (12-16); IMMATURE GRANULOCYTES 0.3 % (0-5); LYMPHOCYTES 16.8 % (15-50); MCH 28.8 pg (26.0-34.0); MCHC 33.7 g/dL (31.0-37.0); MCV 85.4 fL (80.0-100.0); MEAN PLATELET VOLUME 9.2 fL (7.4-10.4); MONOCYTES 7.7 % (2-11); NEUTROPHILS 69.8 % (40-80); PLATELET COUNT 262 10x3/uL (130-400); RBC 4.31 10x6/uL (4.00-5.40); RDW 14.2 % (11.5-14.5); WBC 7.4 10x3/uL (4.8-10.8)
[2019-02-21 08:53] LABS: CHOL - HDL RATIO 6.4 ratio (2.3-4.1)
--- NOTE | 2019-02-21 10:57 | NUR ---
RECEIVED PT TO ROOM, PT SLEEPING AND AWAKENS EASILY. DENIES ANY C/O. DRESING CDI TO RIGHT GROIN, AREA IS SOFT AND NONTENDER. PEDAL PULSES PALPABLE. NSR, RATE 61. BP IS 93/53. IV PATENT AND INFUSING PER ORDERS. HOB IS FLAT. PT INSTRUCTED TO KEEP HEAD FLAT TO PILLOW AND RIGHT LEG STRAIGHT AND VERBALIZES UNDERSTANDING. AT BEDSIDE. BED LOCKED AND LOW, SIDE RAILS UP X2. CALL LIGHT IN REACH.
--- NOTE | 2019-02-21 11:07 | NUR ---
HOG IS FLAT, DRESSING CDI, PEDAL PULSES PALPABLE. NSR, RESP WITH EASE.
--- NOTE | 2019-02-21 11:53 | NUR ---
DRESSING CDI, PEDAL PULSES PALPABLE. VSS,. CALL LIGHT IN REACH.
--- NOTE | 2019-02-21 12:11 | NUR ---
PT HAS VOIDED QS USING BEDPAN, DRESSING CDI TO RIGHT GROIN, AREA IS SOFT WITH NO HEMATOMA NOTED. PT STATES SHE HAS A HEADACHE, STATES WAS "TRIGGERED WHEN THE LIGHT WAS TURNED ON' WHILE PT T=PLACED ON BEDPAN. REQUESTS TYLENOL AND ORDER RECIEVED FOR THIS. SANDWICH AND PO FLUIDS SERVED, HOB ELEVATED 30 DEGREES, LIGHTS IN ROOM ARE OFF. ALERT AND AT BEDSIDE. SINUS MAINE AT 56. PT IS 112/64
--- NOTE | 2019-02-21 12:38 | NUR ---
1220 PT HAS TOLERATED SANDWICH WITH NO C/O NAUSEA. DRESSING REMAINS CDI TO RIGHT GROIN, AREA IS SOFT WITH NO HEMATOMA NOTED. PEDAL PULSES PALPABLE. HOB IS FULLY ELEVATED. 1238 DRESSING REMAINS CDI TO RIGHT GROIN, PEDAL PULSES PALPABLE. IV DC'D WITH CATH INTACT.
--- NOTE | 2019-02-21 13:25 | NUR ---
1300 ASSISTED PT WITH DRESSING FOR DC TO HOME. PT IS ALERT, DENIES ANY C/O CHEST PAIN OR NAUSEA. STATES HEADACHE IS 'MUCH BETTER' AFTER TYLENOL. DRESSING REMAINS CDI TO RIGHT GROIN. 1305 DC INSTRUCTIONS HAVE BEEN REVIEWED WITH PT AND WHO VERBALIZE UNDERSTANDING. PT DENIES ANY C/O. ESCORTED TO PRIVATE AUTO VIA WC BY NURSE WITH DRIVING HER HOME. PT HAS ALL PERSONAL BELONGINGS AND DC INSTRUCTIONS AT TIME OF DISCHARGE.
== END 2019-02-21 13:05 | disposition home or self-care (01) ==
LOC: D.CATH 07:50
PROVIDERS: ATTEND Internal Medicine Interventional Cardiology
DX: R07.89 Other chest pain (principal); I25.10 Atherosclerotic heart disease of native coronary artery without angina pectoris; Z95.5 Presence of coronary angioplasty implant and graft; Z01.812 Encounter for preprocedural laboratory examination

== ENCOUNTER → 2019-05-15 17:31 | Outpatient (CLI) | payer OTHER ==
[2019-02-21 08:31] VITALS: BMI 35.3
[2019-05-15 19:11] LABS: CHOL - HDL RATIO 6.9 ratio (2.3-4.1); LDL-HDL RATIO 4.6 ratio (1.5-3.5)
== END | disposition home or self-care (01) ==
LOC: D.LABREF 17:31
PROVIDERS: ATTEND Internal Medicine Interventional Cardiology
DX: I25.10 Atherosclerotic heart disease of native coronary artery without angina pectoris (principal)